=== PATIENT | female | born 1985 | race Caucasian/White ===

== ENCOUNTER 2017-07-21 12:48 | Emergency (ER) | payer SELFPAY ==
[~2017-07-21] VITALS: Ht 160 cm; Wt 75.3 kg
[~2017-07-21 12:48] MED LIST: CEPHALEXIN500 MG PO; IBUPROFEN800 MG PO
[2017-07-21] MEDS ORDERED: ZITHROMAX250 MG PO (13:14)
[2017-07-21] MEDS ORDERED: NORCO 5-325 TA1 EACH PO (13:14)
== END 2017-07-21 13:23 | disposition home or self-care (01) ==
LOC: ED 12:48
DX: J03.90 Acute tonsillitis, unspecified (principal); I10 Essential (primary) hypertension; Z87.891 Personal history of nicotine dependence
CPT/HCPCS: 99283

== ENCOUNTER 2017-07-23 08:07 | Emergency (ER) | payer SELFPAY ==
[~2017-07-23] VITALS: Ht 160 cm; Wt 75.3 kg
[~2017-07-23 08:07] MED LIST changes: +NORCO 5-325 TA1 EACH PO; +ZITHROMAX250 MG PO
[2017-07-23] MEDS ORDERED: PREDNISONE20 MG PO (09:15)
== END 2017-07-23 09:25 | disposition home or self-care (01) ==
LOC: ED 08:07
DX: L50.0 Allergic urticaria (principal); T36.3X5A Adverse effect of macrolides, initial encounter; J02.9 Acute pharyngitis, unspecified; I10 Essential (primary) hypertension; Z87.891 Personal history of nicotine dependence
CPT/HCPCS: 87081; 87880; 99283; J7512